=== PATIENT | female | born 1945 | race Caucasian/White ===

== ENCOUNTER 2017-08-12 08:54 | Emergency (ER) | payer MEDICARE, BC ==
[~2017-08-12] VITALS: Ht 165.1 cm; Wt 58.0 kg
--- NOTE | ~2017-08-12 | EKG ---
PATIENT: [facility] #: [id number] Ventricular Rate: 76 BPM Atrial Rate: 76 BPM P-R Interval: 150 ms QRS Duration: 100 ms Q-T Interval: 380 ms QTC Calculation(Bezet): 427 ms P [place]: 82 degrees Calculated R [place]: 29 degrees Calculated T [place]: 58 degrees Diagnosis Line: Normal sinus rhythm Diagnosis Line: Normal ECG Diagnosis Line: No previous ECGs available Diagnosis Line: Confirmed by ROBER GREEN MD ([id number]) on Diagnosis Line: 08/12/2017 11:38:36 AM INTERPRETING MD: PETER PETERS
== END 2017-08-12 10:14 | disposition home or self-care (01) ==
LOC: CED 08:54
DX: R07.0 Pain in throat (principal); R07.89 Other chest pain; F41.9 Anxiety disorder, unspecified; I10 Essential (primary) hypertension; I48.91 Unspecified atrial fibrillation; Z85.3 Personal history of malignant neoplasm of breast; Z88.0 Allergy status to penicillin; Z88.1 Allergy status to other antibiotic agents; Z88.5 Allergy status to narcotic agent; Z88.8 Allergy status to other drugs, medicaments and biological substances
CPT/HCPCS: 87651; 93005; 99283; J2060; J2930